=== PATIENT | male | born 1950 | race Caucasian/White ===

== ENCOUNTER 2016-12-10 10:26 | Emergency (ER) | payer MEDICARE, BC ==
[2016-12-10 10:37] VITALS: BP 171/101
[2016-12-10 11:07] LABS: Hematocrit 38.9 % (42.0-52.0); Hemoglobin 13.6 gm/dL (13.5-18.0); Mean Cell Volume 94.9 fl (78-100); Mean Corpuscular Hemoglobin 33.2 pg (27-31); Mean Platelet Volume 10.7 fl (6.0-9.5); Neutrophil # 2.9 K/mm3 (1.3-6.0); Neutrophil % 68.3 % (42-75.0); Platelet Count 168 K/mm3 (150-450); Red Cell Distribution Width 12.6 % (11.5-14.0); White Blood Count 4.3 K/mm3 (4.0-10.5)
[2016-12-10 11:11] LABS: Urine Bilirubin Negative (NEGATIVE); Urine Blood 250 /ul (NEGATIVE); Urine Ketone 15 mg/dL (NEGATIVE); Urine Nitrite Negative (NEGATIVE); Urine Protein >=300 mg/dL (NEGATIVE); Urine Urobilinogen Normal (NORMAL); Urine pH 6.5 pH (5.0-7.0)
[2016-12-10 11:15] LABS: Prothrombin Time (Patient) 9.4 Seconds (9.4-11.4)
[2016-12-10 11:16] LABS: INR 0.9 INR (0.90-1.10)
[2016-12-10 11:20] LABS: Urine Appearance Turbid; Urine Bacteria TRACE; Urine Color Red; Urine RBC >50 /hpf (0-5); Urine WBC None Seen /hpf (0-5)
[2016-12-10 11:33] LABS: BUN/Creatinine Ratio 18.6 (9.0-21.6); Bilirubin, Total 0.6 mg/dL (0.0-1.1); Ca. Corrected For Albumin 9.2 mg/dL (8.4-10.2); Calcium * 9.5 mg/dL (7.9-10.9); Carbon Dioxide 27.1 mmol/L (24-32.6); Potassium 4.1 mmol/L (3.4-4.6); Total Protein 7.6 gm/dL (6.2-8.2)
--- NOTE | 2016-12-10 11:38 | ERNOTE ---
ER Male HPI Stated Complaint: URINATING BLOOD ER Male: other - hematuria Time Seen by Provider: 12/10/16 10:40 Source: patient Immunizations: IMMUNIZATION HX Immunizations Up to Date Yes Allergies/Adverse Reactions: Allergies codeine Adverse Reaction (Severe, Verified 12/10/16 10:37) Vomiting Home Medications: HOME MEDICATIONS PARoxetine HCL [Paxil] 20 mg PO DAILY 11/14/14 [Last Taken Unknown] Terazosin HCl 2 mg PO DAILY 11/14/14 [Last Taken Unknown] Bupropion HCl [Wellbutrin Sr] 150 mg PO DAILY 12/10/16 [Last Taken Unknown] - History of Present Illness Narrative: Patient was recently seen in his doctor's office and was started on Keflex for what was believed to be a UTI with hematuria. Patient states that the bleeding has gotten worse and is now passing clots. Patient denies any pain of any kind. Timing: Present: constant - with every urination Quality: Present: moderate Radiation: Present: none Activities at Onset: Present: none Sexual [place] History: Present: single partner Associated Symptoms: Present: denies symptoms Prior Treatment: Present: recently seen, treated by physician, currently on antibiotics Review of Systems - Review of Systems Constitutional: Present: See HPI EYE: Present: no symptoms reported ENT: Present: no symptoms reported Respiratory: Present: no symptoms reported Cardiology: Present: no symptoms reported Gastrointestinal/Abdominal: Present: no symptoms reported Genitourinary: Present: See HPI, hematuria Musculoskeletal: Present: no symptoms reported Skin: Present: no symptoms reported Neurological: Present: no symptoms reported Endocrine: Present: no symptoms reported Hematologic/Lymphatic: Present: no symptoms reported Psych: Present: no symptoms reported - Patient's Past Medical History Patient History - Medical: Headache Patient History - Cancer: No Hx of Cancer Patient History - Surgical Procedures: Noncontributory - Social History Living Situations: home Alcohol Use: none Drug Use: none - Immunizations Immunizations Up to Date: Yes Physical Exam - Physical Exam General Appearance: Present: wd/wn, alert, no apparent distress Head Exam: Present: normal inspection Eye Exam: Normal inspection: bilateral, PERRL: bilateral Ears, Nose, Throat: Present: normal ENT inspection, H, normal pharynx Neck: Present: normal inspection, nontender Respiratory: Present: no respiratory distress, normal breath sounds, no accessory muscle use, chest nontender, lungs clear Cardiovascular/Chest: Present: regular rate, rhythm, no murmur, normal peripheral pulses Gastrointestinal/Abdominal: Present: normal bowel sounds, nontender, nondistended, soft, no organomegaly Rectal Exam: Present: deferred Back Exam: Present: normal inspection, normal range of motion Extremity Exam: Present: normal inspection, non-tender, no edema, normal range of motion Neurological Exam: Present: alert, oriented, normal mood/affect Skin Exam: Present: normal color, warm/dry Lymphatic Exam: Present: no adenopathy ED Progress - Results and Orders Patient's Lab Results:: I have reviewed the patient's lab results. - Vital Signs Patient's Vital Signs:: I have reviewed the patient's vital signs. Vital Signs: Vital Signs 12/10/16 10:33 Temperature 36.2 C L Pulse Rate 80 Respiratory 12 Rate Blood Pressure 171/101 O2 Sat by Pulse 98 Oximetry - Progress/Reassessment Chief Complaint: Genitourinary Problem Plan - Plan Plan: As the patient has painless hematuria, in the absence of any obvious urinary tract infection, we have to consider possible transitional cell carcinoma of the bladder. I discussed the case with Dr. Maciel's office patient will be seen on Wednesday for possible uroscopy. Departure Clinical Impression: Hematuria Qualifiers: Hematuria type: gross Qualified Code(s): R31.0 - Gross hematuria - Departure Disposition: Home self-care Condition: Good Instructions: Hematuria, Pediatric Additional Instructions: See Dr. Maciel Wednesday afternoon at 4 pm. Referrals: Kera Smith MD [Primary Care Provider] - Krzysztof Maciel MD [Associate] -
== END 2016-12-10 11:41 | disposition home or self-care (01) ==
LOC: ER 10:26
DX: R31.0 Gross hematuria (principal)

== ENCOUNTER 2017-02-11 15:05 | Inpatient (IN) | payer MEDICARE, BC ==
[2017-02-11] MEDS ORDERED: NORMAL SALINE 1,000 ML IV ONE (15:13)
[2017-02-11] MEDS ORDERED: ACETAMINOPHEN 325 MG TABLET PO ONE (15:26)
--- NOTE | 2017-02-11 15:29 | ERNOTE ---
Medical Problem HPI - Narrative Date of Service: 02/11/17 - General Chief Complaint: Nausea/Vomiting Time Seen by Provider: 02/11/17 15:05 Source: patient Exam Limitations: no limitations - Immun/Allergies/Home Medications Immunizations: IMMUNIZATION HX Immunizations Up to Date Yes History of Influenza Vaccine No Allergies/Adverse Reactions: Allergies codeine Adverse Reaction (Severe, Verified 02/11/17 15:13) Vomiting Home Medications: HOME MEDICATIONS PARoxetine HCL [Paxil] 20 mg PO DAILY 11/14/14 [Last Taken Unknown] Terazosin HCl 2 mg PO DAILY 11/14/14 [Last Taken Unknown] Bupropion HCl [Wellbutrin Sr] 150 mg PO DAILY 12/10/16 [Last Taken Unknown] Oxybutynin Chloride [Ditropan] 5 mg PO 02/11/17 [Last Taken Unknown] - History of Present History Narrative: Pt. comes in with c/o vomiting intermittently for 2-3 weeks and no urine output from nephrostomy tube for 2 days. Pt. denies fever, nausea, diarrhea, but does state that he has been chilled and states that he was a little confused earlier today but that has resolved. also states taht pt. does urinate via his urethra. Review of Systems - Review of Systems Constitutional: Present: recent illness - bladder CA, chills, weakness, fatigue , malaise. Absent: fever EYE: Present: no symptoms reported ENT: Present: no symptoms reported Respiratory: Present: no symptoms reported. Absent: shortness of breath, cough , wheezing Cardiology: Present: no symptoms reported. Absent: chest pain, palpitations, edema Gastrointestinal/Abdominal: Present: vomiting. Absent: nausea, diarrhea, abdominal pain Genitourinary: Present: no symptoms reported Musculoskeletal: Present: no symptoms reported. Absent: back pain, joint pain Skin: Present: no symptoms reported. Absent: rash, change in color Neurological: Present: other - confusion. Absent: headache, dizziness/light- headedness, numbness, tingling All Other Systems: All systems neg except as marked - Patient's Past Medical History Patient History - Medical: Headache Patient History - Cancer: Bladder Patient History - Surgical Procedures: Hernia Repair Patient History - Other: None - Social History Living Situations: home Smoking Status: Current every day smoker Have you smoked in the past 12 months: Yes - Immunizations Immunizations Up to Date: Yes History of Influenza Vaccine: No Physical Exam - Physical Exam General Appearance: Present: wd/wn, alert, no apparent distress Head Exam: Present: normal inspection, no evidence of injury Eye Exam: Normal inspection: bilateral, PERRL: bilateral, EOMI: bilateral Ears, Nose, Throat: Present: normal ENT inspection, normal pharynx Neck: Present: normal inspection, nontender, supple, full range of motion. Absent: lymphadenopathy (R), lymphadenopathy (L) Respiratory: Present: no respiratory distress, normal breath sounds, no accessory muscle use, chest nontender, lungs clear Cardiovascular/Chest: Present: no murmur, normal peripheral pulses, tachycardia Gastrointestinal/Abdominal: Present: normal bowel sounds, nontender, distended, hepatomegaly Back Exam: Present: normal inspection, normal range of motion, CVA tenderness (L ) Extremity Exam: Present: normal inspection Neurological Exam: Present: alert, oriented, normal mood/affect, no motor/ sensory deficits Skin Exam: Present: warm/dry, pallor ED Progress - Date and Time Seen: Date and Time: 02/11/17 22:09 Discussed with taina and she accepts admission with Angelica obtaining a neprostomy tube collection bag and getting a head CT on the way to the floor. - Results and Orders Patient's Lab Results:: I have reviewed the patient's lab results. Results and Orders: Abnormal Lab Results 02/11/17 02/11/17 02/11/17 Range/Units 15:10 15:30 15:30 RBC 3.70 L (4.7-6.0) M/mm3 Hgb 12.5 L (13.5-18.0) gm/dL Hct 36.2 L (42.0-52.0) % MCH 33.8 H (27-31) pg Plt Count 149 L (150-450) K/mm3 MPV 10.5 H (6.0-9.5) fl Immature Gran % (Auto) 0.50 H (0.001-0.429) % Neutrophils % 84.5 H (42-75.0) % Lymphocytes % 6.1 L (20-51) % Lymphocytes # 0.4 L (1.5-3.5) k/mm3 ESR (0-10) mm/hr Anion Gap 14.8 H (6.8-13.8) mmol/L Est GFR (Non-Af Amer) 58 L (60-130) mL/min Random Glucose 120 H (70-110) mg/dL Lactic Acid, Venous (0.4-1.9) mmol/L AST 62 H (0-48) U/L ALT 82 H (19-67) U/L C-Reactive Prot, Quant 12.2 H (0.0-0.9) mg/dL Urine Protein >=300 H (NEGATIVE) mg/dL Urine Blood 250 H (NEGATIVE) /ul Prot Sulfosalicylic Acd 4+ H (0) mg/dL Ur Leukocyte Esterase 500 H (NEGATIVE) /ul Urine RBC 25-50 H (0-5) /hpf Urine WBC >50 H (0-5) /hpf Urine Bacteria 4+ H (NONE) Ethyl Alcohol 26.0 H (0.0-10.0) mg/dL 02/11/17 02/11/17 Range/Units 15:30 15:30 RBC (4.7-6.0) M/mm3 Hgb (13.5-18.0) gm/dL Hct (42.0-52.0) % MCH (27-31) pg Plt Count (150-450) K/mm3 MPV (6.0-9.5) fl Immature Gran % (Auto) (0.001-0.429) % Neutrophils % (42-75.0) % Lymphocytes % (20-51) % Lymphocytes # (1.5-3.5) k/mm3 ESR 29 H (0-10) mm/hr Anion Gap (6.8-13.8) mmol/L Est GFR (Non-Af Amer) (60-130) mL/min Random Glucose (70-110) mg/dL Lactic Acid, Venous 3.3 H* (0.4-1.9) mmol/L AST (0-48) U/L ALT (19-67) U/L C-Reactive Prot, Quant (0.0-0.9) mg/dL Urine Protein (NEGATIVE) mg/dL Urine Blood (NEGATIVE) /ul Prot Sulfosalicylic Acd (0) mg/dL Ur Leukocyte Esterase (NEGATIVE) /ul Urine RBC (0-5) /hpf Urine WBC (0-5) /hpf Urine Bacteria (NONE) Ethyl Alcohol (0.0-10.0) mg/dL - Vital Signs Patient's Vital Signs:: I have reviewed the patient's vital signs. Vital Signs: Vital Signs 02/11/17 15:06 Temperature 38.0 C H Pulse Rate 113 H Respiratory 15 Rate Blood Pressure 161/95 O2 Sat by Pulse 97 Oximetry - X-Ray X-Ray #1 X-Ray: chest Interpretation: Reviewed by me X-ray Comments: no acute process X-Ray #2 X-Ray: abdomen Interpretation: Reviewed by me X-ray Comments: abnormal gas pattern - CT/Ultrasound CT/Ultrasound Narrative: CT abdomen with notable bladder mass and soft tissue abnormality on abdominal wall but no obstruction. - Progress/Reassessment Chief Complaint: Nausea/Vomiting Progress:: Unchanged Departure Clinical Impression: UTI (urinary tract infection) Qualifiers: Urinary tract infection type: acute pyelonephritis Qualified Code(s): N10 - Acute pyelonephritis Sepsis Qualifiers: Sepsis type: sepsis due to unspecified organism Qualified Code(s): A41.9 - Sepsis, unspecified organism Bladder cancer Qualifiers: Bladder location: unspecified site Qualified Code(s): C67.9 - Malignant neoplasm of bladder, unspecified - Departure Disposition: [facility] Condition: Serious
[2017-02-11] MEDS ORDERED: ACETAMINOPHEN 325 MG TABLET ONE (15:34)
[2017-02-11 15:58] LABS: Hematocrit 36.2 % (42.0-52.0); Hemoglobin 12.5 gm/dL (13.5-18.0); Mean Cell Volume 97.8 fl (78-100); Mean Corpuscular Hemoglobin 33.8 pg (27-31); Mean Corpuscular Hgb Conc 34.5 g/dl (32-36); Mean Platelet Volume 10.5 fl (6.0-9.5); Neutrophil # 4.8 K/mm3 (1.3-6.0); Neutrophil % 84.5 % (42-75.0); Platelet Count 149 K/mm3 (150-450); Red Cell Distribution Width 13.2 % (11.5-14.0); White Blood Count 5.7 K/mm3 (4.0-10.5)
[2017-02-11] MEDS ORDERED: ONDANSETRON HCL/PF 2 MG/ML VIAL IV ONE (16:08)
[2017-02-11 16:09] LABS: Albumin * 3.6 gm/dl (3.4-5.0); Anion Gap 14.8 mmol/L (6.8-13.8); BUN/Creatinine Ratio 14.5 (9.0-21.6); Calcium * 9.2 mg/dL (7.9-10.9); Carbon Dioxide 27.2 mmol/L (24-32.6); Total Protein 7.5 gm/dL (6.2-8.2)
[2017-02-11 16:10] LABS: Bilirubin, Total 0.7 mg/dL (0.0-1.1); CRP 12.2 mg/dL (0.0-0.9); Ca. Corrected For Albumin 9.2 mg/dL (8.4-10.2)
[2017-02-11] MEDS ORDERED: ONDANSETRON HCL/PF 2 MG/ML VIAL ONE (16:14)
[2017-02-11] MEDS: NORMAL SALINE 1,000 ML IV PRN ×2 (17:03→18:43)
[2017-02-11 17:22] LABS: Urine Bilirubin Negative (NEGATIVE); Urine Blood 250 /ul (NEGATIVE); Urine Ketone Negative (NEGATIVE); Urine Nitrite Negative (NEGATIVE); Urine Protein >=300 mg/dL (NEGATIVE); Urine Urobilinogen Normal (NORMAL); Urine pH 7.5 pH (5.0-7.0)
[2017-02-11] MEDS ORDERED: DIATRIZOATE MEGLUMINE, SODIUM 30 ML BTL ONE (17:31)
[2017-02-11] MEDS ORDERED: DIATRIZOATE MEGLUMINE, SODIUM 30 ML BTL PO ONE (17:34)
[2017-02-11 17:47] LABS: Urine Appearance Cloudy; Urine Color Yellow; Urine RBC 25-50 /hpf (0-5); Urine WBC >50 /hpf (0-5)
[2017-02-11 17:48] LABS: Urine Bacteria 4+
[2017-02-11] MEDS ORDERED: hydrOXYzine PAMOATE 25 MG CAPSULE PO ONE (20:44)
[2017-02-11] MEDS ORDERED: hydrOXYzine PAMOATE 25 MG CAPSULE ONE (20:44)
--- NOTE | 2017-02-11 22:34 | HP ---
Chief Complaint - Chief Complaint Date of Service: 02/11/17 Time of Service: 22:28 Chief Complaint: "Confusion, fevers". Source of HPI- Pt; unreliable due to AMS , ERP report. History of Present Illness: Mr. Camarena is a 66-yr-old [facility] pt who sees Dr. Taylor Smith in [place]. His PMH is significant for: Bladder Ca, Hernia & HTN.History is unobtainable from the pt due to AMS and attempts to reach family/spouse were unsuccessful. Apparently pt was brought to the ED tonight with complaints vomiting intermittently for 2- 3 weeks and lack of urinary output from the LT Nephrostomy tube for about 2 days. Spouse reported to the ERP that pt has also been acting confused. At the ED, V.S - 38.0,113,15,161/95, 97% RA. Lab studies showed WBC--> 5.7 with a LT shift, Lactic acid --> 3.3, CRP-->12.2, ESR-->29, AST-->62 ALT-->82. UA from LT Nephrostomy showed presence of infection. Toxicology screening was positive for ETOH & Marijuana. An abdominal CT showed: Moderate LT hydrouterenephrosis. Of- note pt presented to the [facility] ER on 12/10/16 with painless Hematuria and passing of blood clots. Referral was made to Urology for suspicion of Bladder cancer-(Still awaiting medical records from [facility] where he followed-up with Dr. Maciel's for Ureteroscopy). Pt will need to be admitted inpatient for a minimum of 2 midnights due to Sepsis secondary to UTI. - Patient's Past Medical History Patient History - Medical: Headache, Other - Hernia Patient History - Cardiac/Respiratory: Hypertension Patient History - Cancer: Bladder Patient History - Surgical Procedures: Hernia Repair Patient History - Other: None - Family History Father Family History - Medical: , No pertinent hx Mother Family History - Medical: , No pertinent hx - Social History Living Situations: home Smoking Status: Current every day smoker Have you smoked in the past 12 months: Yes - Immunizations Immunizations Up to Date: Yes History of Influenza Vaccine: No Review Of Systems (GEN) - Review of Systems Additional Comments: ROS unobtainable due to AMS. Allergies/Adverse Reactions: Allergies Allergy/AdvReac Type Severity Reaction Status Date / Time codeine AdvReac Severe Vomiting Verified 02/11/17 15:13 Home Medications: HOME MEDICATIONS PARoxetine HCL [Paxil] 20 mg PO DAILY 11/14/14 [Last Taken Unknown] Terazosin HCl 2 mg PO DAILY 11/14/14 [Last Taken Unknown] Bupropion HCl [Wellbutrin Sr] 150 mg PO DAILY 12/10/16 [Last Taken Unknown] Oxybutynin Chloride [Ditropan] 5 mg PO 02/11/17 [Last Taken Unknown] Exam - Exam Vital Signs: Vital Signs - Last Taken Temp 37.7 C H 02/11/17 21:37 Pulse 117 H 02/11/17 21:37 Resp 22 H 02/11/17 21:37 BP 160/95 02/11/17 21:37 Pulse Ox 95 02/11/17 21:37 Constitutional: Present: Alert, Mild distress, Thin and frail ENT Exam: Present: dry mucous membranes Eye Exam: bilateral eye: normal inspection, PERRL Neck: Present: non-tender, full range of motion, supple Back Exam: Present: other - Surgival site with LT nephrstomy tube Breasts: Present: Exam deferred Respiratory: Present: lungs clear, No rales, No wheezing Cardiovascular/Chest: Present: normal peripheral pulses, tachycardia Abdomen: Present: Normal bowel sounds, soft, nontender /Rectal: Present: Exam deferred Extremity: Present: normal range of motion, non-tender, normal inspection Skin Exam: Present: warm/dry, no cyanosis Lymphatic: Present: no adenopathy Neurologic: Present: no motor/sensory deficits, alert, disoriented x 3 Appearance: Present: impaired insight Eye contact: Present: decreased rate of speech, compulsive Thoughts: Present: incoherent Diagnostic Studies: Laboratory Results WBC 5.7 K/mm3 (4.0-10.5) 02/11/17 15:30 RBC 3.70 M/mm3 (4.7-6.0) L 02/11/17 15:30 Hgb 12.5 gm/dL (13.5-18.0) L 02/11/17 15:30 Hct 36.2 % (42.0-52.0) L 02/11/17 15:30 MCV 97.8 fl (78-100) 02/11/17 15:30 MCH 33.8 pg (27-31) H 02/11/17 15:30 MCHC 34.5 g/dl (32-36) 02/11/17 15:30 RDW 13.2 % (11.5-14.0) 02/11/17 15:30 Plt Count 149 K/mm3 (150-450) L 02/11/17 15:30 MPV 10.5 fl (6.0-9.5) H 02/11/17 15:30 Immature Gran % (Auto) 0.50 % (0.001-0.429) H 02/11/17 15:30 Immature Gran # (Auto) 0.03 K/mm3 (0.000-0.0310) 02/11/17 15:30 Neutrophils % 84.5 % (42-75.0) H 02/11/17 15:30 Lymphocytes % 6.1 % (20-51) L 02/11/17 15:30 Monocytes % 7.9 % (0.0-9) 02/11/17 15:30 Eosinophils % 0.5 % (0.0-3.0) 02/11/17 15:30 Basophils % 0.5 % (0.0-1.0) 02/11/17 15:30 Nucleated RBC % 0.0 k/mm3 (0-1) 02/11/17 15:30 Neutrophils # 4.8 K/mm3 (1.3-6.0) 02/11/17 15:30 Lymphocytes # 0.4 k/mm3 (1.5-3.5) L 02/11/17 15:30 Monocytes # 0.5 k/mm3 (0.0-1.0) 02/11/17 15:30 Eosinophils # 0.0 k/mm3 (0.0-0.7) 02/11/17 15:30 Absolute Basophils 0.0 k/mm3 (0.0-0.1) 02/11/17 15:30 ESR 29 mm/hr (0-10) H 02/11/17 15:30 Sodium 135 mmol/L (132-142) 02/11/17 15:30 Plasma Sodium 135 mmol/L (130-142) 02/11/17 15:30 Potassium 4.0 mmol/L (3.4-4.6) 02/11/17 15:30 Chloride 97 mmol/L (97-106) 02/11/17 15:30 Carbon Dioxide 27.2 mmol/L (24-32.6) 02/11/17 15:30 Anion Gap 14.8 mmol/L (6.8-13.8) H 02/11/17 15:30 BUN 19 mg/dL (6-23) 02/11/17 15:30 Creatinine 1.31 mg/dL (0.4-1.4) 02/11/17 15:30 Est GFR (Non-Af Amer) 58 mL/min (60-130) L 02/11/17 15:30 BUN/Creatinine Ratio 14.5 (9.0-21.6) 02/11/17 15:30 Random Glucose 120 mg/dL (70-110) H 02/11/17 15:30 Lactic Acid, Venous 1.9 mmol/L (0.4-1.9) 02/11/17 18:28 Calcium 9.2 mg/dL (7.9-10.9) 02/11/17 15:30 Calcium Adj for Albumin 9.2 mg/dL (8.4-10.2) 02/11/17 15:30 Total Bilirubin 0.7 mg/dL (0.0-1.1) 02/11/17 15:30 AST 62 U/L (0-48) H 02/11/17 15:30 ALT 82 U/L (19-67) H 02/11/17 15:30 Alkaline Phosphatase 125 U/L (50-170) 02/11/17 15:30 Ammonia Less than 17.0 mcmol/L (11-35) 02/11/17 19:30 C-Reactive Prot, Quant 12.2 mg/dL (0.0-0.9) H 02/11/17 15:30 Total Protein 7.5 gm/dL (6.2-8.2) 02/11/17 15:30 Albumin 3.6 gm/dl (3.4-5.0) 02/11/17 15:30 Urine Color Yellow 02/11/17 15:10 Urine Appearance Cloudy 02/11/17 15:10 Urine pH 7.5 pH (5.0-7.0) 02/11/17 15:10 Ur Specific [place] 1.020 SP.GR. (1.005-1.030) 02/11/17 15:10 Urine Protein >=300 mg/dL (NEGATIVE) H 02/11/17 15:10 Urine Glucose (UA) Negative mg/dL (NEGATIVE) 02/11/17 15:10 Urine Ketones Negative mg/dL (NEGATIVE) 02/11/17 15:10 Urine Blood 250 /ul (NEGATIVE) H 02/11/17 15:10 Urine Nitrate Negative (NEGATIVE) 02/11/17 15:10 Urine Bilirubin Negative mg/dl (NEGATIVE) 02/11/17 15:10 Prot Sulfosalicylic Acd 4+ mg/dL (0) H 02/11/17 15:10 Urine Urobilinogen Normal EU/dl (NORMAL) 02/11/17 15:10 Ur Leukocyte Esterase 500 /ul (NEGATIVE) H 02/11/17 15:10 Urine RBC 25-50 /hpf (0-5) H 02/11/17 15:10 Urine WBC >50 /hpf (0-5) H 02/11/17 15:10 Ur Epithelial Cells Trace /hpf (0-5) 02/11/17 15:10 Urine Bacteria 4+ (NONE) H 02/11/17 15:10 Urine Culture Comments Culture to follow 02/11/17 15:10 Ethyl Alcohol 26.0 mg/dL (0.0-10.0) H 02/11/17 15:30 Assessment/Plan - Assessment/Plan (1) Sepsis Assessment: Pt noted to have fever of 38.0, HR 113,& Lactic acid of 3.3 with suspected source of infection being UTI. Treated according to Sepsis Protocol- Aggressive IVF hydration, IV antibiotics, trend lactic acid, Monitor V.S. CBC in am. Problem: Acute Qualifiers: Sepsis type: sepsis due to unspecified organism Qualified Code(s): A41.9 - Sepsis, unspecified organism (2) UTI (urinary tract infection) Assessment: UA sterile sample collected from LT Nephrostumy tube. Started on Rocephin 1 gm at the ED and will switch to appropriate antibiotics when urine culture results. Laboratory Tests 02/11/17 15:10 Ur Leukocyte Esterase 500 H Urine RBC 25-50 H Urine WBC >50 H Urine Bacteria 4+ H Problem: Acute Qualifiers: Urinary tract infection type: acute pyelonephritis Qualified Code(s): N10 - Acute pyelonephritis (3) Hydronephrosis of left kidney Assessment: CT of the Abdomen showed: LT moderate hydronephrosis, No RT hydronephrosis. Pt reported lack of urine output on the LT nephrostomy x 2 days. Will consult Urology in am. The Nephrostomy bag was replaced by the ERP due to the filth with mold contained in it and an improvised bag was used as we do NOT carry one with similar connecting device/adaptor. There is minimal urine drainage. Problem: Acute (4) Acute encephalopathy Assessment: AMS is likely due to Infection, toxicity from ETOH, or recreational drug use. No infection on CXR and no inflammatory changes on the CT of the Abdomen. Expect an improvement as problems resolve. Unable to do Head CT for at least 24 hours due to prior contrast use with the Abdominal CT. Problem: Acute (5) Bladder cancer Assessment: On 12/14- According to [facility], he underwent transuretheral resection of the LT bladder neck- (had a mass > 5cm,) and Transurethral resection of the prostate along with biopsies. LT kidney was obstructed and he required a nephrostomy tube - done on 12/18. Plan unclear as there are no records of pt following up with Urology following final pathology results. Will consult in am. Cytology results showed: Urinary bladder washing- benign urothelial cells, mixed inflammation. Negative for malignancy. RT Flank Biospy- Features suggestive of Hemangioma, No evidence of metastatic carcinoma Prostate Transuretheral resection of prostate- Benign prostatic tissues, high grade urothelial carcinoma. Urinary bladder excision- High grade urothelial carcinoma Problem: Acute Qualifiers: Bladder location: unspecified site Qualified Code(s): C67.9 - Malignant neoplasm of bladder, unspecified (6) Alcohol intoxication Assessment: Monitor for withdrawals, prn medications. Laboratory Tests 02/11/17 15:30 Ethyl Alcohol 26.0 H Problem: Acute (7) Soft tissue mass Problem: Acute (8) Hypertension Problem: Chronic Qualifiers: Hypertension type: essential hypertension Qualified Code(s): I10 - Essential (primary) hypertension
[2017-02-12] MEDS: NORMAL SALINE 1,000 ML IV PRN ×3 (00:33→17:15)
[2017-02-12 05:54] LABS: Hematocrit 32.7 % (42.0-52.0); Mean Cell Volume 98.8 fl (78-100); Mean Corpuscular Hemoglobin 33.2 pg (27-31); Mean Corpuscular Hgb Conc 33.6 g/dl (32-36); Mean Platelet Volume 10.4 fl (6.0-9.5); Platelet Count 113 K/mm3 (150-450); Red Blood Count 3.31 M/mm3 (4.7-6.0); White Blood Count 6.1 K/mm3 (4.0-10.5)
[2017-02-12 06:00] LABS: Total Cells Counted 100
--- NOTE | 2017-02-12 06:08 | PN ---
Subjective - Date and Time Seen Date: 02/12/17 Time: 05:59 Subjective Narrative: Pt seen this am. Noted to have tremors. LT nephrostomy emptied only 25ml. Has been afebrile since 22.00. No other issues according to nursing. Objective - Vitals Vitals: Last Vital Signs Temp 36.3 C L 02/12/17 03:00 Pulse 111 H 02/12/17 04:28 Resp 18 02/12/17 03:00 BP 156/84 02/12/17 03:00 Pulse Ox 94 02/12/17 03:00 - Exam Constitutional: Present: Alert, Oriented x3, Thin and frail ENT Exam: Present: normal ENT inspection, dry mucous membranes Neck: Present: non-tender Respiratory: Present: lungs clear, No rales, No wheezing Cardiovascular/Chest: Present: normal peripheral pulses, regular rate, rhythm, no chest tenderness, no edema Abdomen: Present: Normal bowel sounds, soft, nontender /Rectal: Present: Exam deferred, Other - LT Nephrostomy tube. Extremity: Present: normal range of motion, non-tender, normal inspection Skin Exam: Present: warm/dry, no cyanosis Lymphatic: Present: no adenopathy Neurologic: Present: alert, disoriented x 3 Appearance: Present: impaired insight Eye contact: Present: cooperative, good eye contact, compulsive Thoughts: Present: no apparent hallucination Assessment/Plan - Problems/Diagnosis (1) Sepsis Problem: Acute Qualifiers: Sepsis type: sepsis due to unspecified organism Qualified Code(s): A41.9 - Sepsis, unspecified organism Narrative: Pt noted to have fever of 38.0, HR 113,& Lactic acid of 3.3 with suspected source of infection being UTI. Treated according to Sepsis Protocol- Aggressive IVF hydration, IV antibiotics, trend lactic acid, Monitor V.S. CBC in am (2) UTI (urinary tract infection) Problem: Acute Qualifiers: Urinary tract infection type: acute pyelonephritis Qualified Code(s): N10 - Acute pyelonephritis Narrative: UA sterile sample collected from LT Nephrostumy tube. Started on Rocephin 1 gm at the ED and will switch to appropriate antibiotics when urine culture results. (3) Hydronephrosis of left kidney Problem: Acute Narrative: CT of the Abdomen showed: LT moderate hydronephrosis, No RT hydronephrosis. Pt reported lack of urine output on the LT nephrostomy x 2 days. Will consult Urology in am. 02/11-The Nephrostomy bag was replaced by the ERP due to the filth with mold contained in it and an improvised bag was used as we do NOT carry one with similar connecting device/adaptor. There is minimal urine drainage. 02/12- Seen by Urology- Left nephrostomy was flushed with 20 cc of saline and pulled back enabling it's patency. It's to be flushed with 20 cc every shift. He will have a follow-up outpatient with Urology for the Nephrostomy tube to be changed. Based on the CT scan, the LT nephrostomy tube appears to be in good position. If sepsis worsens or Nephrostomy plugs, will need transfer to [facility]. (4) Acute encephalopathy Problem: Acute Narrative: AMS is likely due to Infection, toxicity from ETOH, or recreational drug use. No infection on CXR and no inflammatory changes on the CT of the Abdomen. Expect an improvement as problems resolve. Unable to do Head CT for at least 24 hours due to prior contrast use with the Abdominal CT. (5) Bladder cancer Problem: Acute Qualifiers: Bladder location: unspecified site Qualified Code(s): C67.9 - Malignant neoplasm of bladder, unspecified Narrative: On 12/14- According to [facility], he underwent transuretheral resection of the LT bladder neck- (had a mass > 5cm,) and Transurethral resection of the prostate along with biopsies. LT kidney was obstructed and he required a nephrostomy tube - done on 12/18. Plan unclear as there are no records of pt following up with Urology following final pathology results. Will consult in am. 02/12- According to Dr. Waterman, pt had arrangements set up at the [facility] following the pathology findings of the bladder. He met with Dr. Dueñas at the [facility] to discuss his case but appears that the pt declined all further treatments. There was questionable metastatic lesion adjacent to the R kidney on CT scan but no further follow up. (6) Alcohol intoxication Problem: Acute Narrative: Monitor for withdrawals, prn medications. (7) Soft tissue mass Problem: Acute (8) Hypertension Problem: Chronic Qualifiers: Hypertension type: essential hypertension Qualified Code(s): I10 - Essential (primary) hypertension
[2017-02-12 06:15] LABS: Atypical (Reactive) Lymph 1 % (0-2); Band 13 % (0-2.0); Lymphocyte 6 % (20-51); Monocyte 6 % (0-9); Neutrophil 74 % (42-75); Neutrophil # 4.5 K/mm3 (1.3-6.0)
[2017-02-12 06:16] LABS: Platelet Estimate Decreased (NORMAL)
[2017-02-12 07:05] LABS: Anion Gap 10.9 mmol/L (6.8-13.8); BUN/Creatinine Ratio 11.4 (9.0-21.6); Calcium * 8.3 mg/dL (7.9-10.9); Carbon Dioxide 26.5 mmol/L (24-32.6); Estimated Creat Clear 68.8; Potassium 3.4 mmol/L (3.4-4.6)
[2017-02-12 07:34] LABS: Urine Bilirubin Negative (NEGATIVE); Urine Blood 250 /ul (NEGATIVE); Urine Ketone Negative (NEGATIVE); Urine Nitrite Negative (NEGATIVE); Urine Protein 100 mg/dL (NEGATIVE); Urine Specific Gravity 1.015 SP.GR. (1.005-1.030); Urine Urobilinogen Normal (NORMAL); Urine pH 7.5 pH (5.0-7.0)
[2017-02-12 07:43] LABS: Urine Appearance Turbid; Urine Color Yellow
[2017-02-12 07:44] LABS: Urine Bacteria 3+; Urine Renal Epithelial Cell Few - 1+ /hpf; Urine WBC >50 /hpf (0-5)
[2017-02-12] MEDS: PARoxetine HCL 20 MG TABLET PO SCH (08:14)
[2017-02-12] MEDS: OXYBUTYNIN CHLORIDE 5 MG TABLET PO SCH (08:14)
[2017-02-12] MEDS: buPROPion HCL 150 MG TABLET.SA PO SCH (08:14)
[2017-02-12] MEDS ORDERED: LORazepam 1 MG TABLET PO PRN ×2 (09:36)
--- NOTE | 2017-02-12 10:12 | CONS ---
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 He was diagnosed in 12/[address] Maciel with [facility]. Found to have hydronephrosis at the time and had nephrostomy placed because cancer covering L UO. His nephrostomy has stopped draining the last 2 days and he has had a low grade fever. Case complicated by heavy EtOH abuse. He met with Dr. Dueñas at the [facility] to discuss his case and he declined all further treatments. There was questionable metastatic lesion adjacent to the R kidney on CT scan but no further follow up. Nursing reports the bag of his nephrostomy was covered with mold. They did change it. Preliminary urine culture from nephrostomy is positive. He has a low grade fever. His states he is very weak. Source: patient - History of Present Illness Allergies/Adverse Reactions: Allergies codeine Adverse Reaction (Severe, Verified 02/11/17 15:13) Vomiting Home Medications: Home Medications Medication Instructions Recorded Last Taken PARoxetine HCL [Paxil] 20 mg PO DAILY 11/14/14 Unknown Terazosin HCl 2 mg PO DAILY 11/14/14 Unknown Bupropion HCl [Wellbutrin Sr] 150 mg PO DAILY 12/10/16 Unknown Oxybutynin Chloride [Ditropan] 5 mg PO 02/11/17 Unknown - Patient's Past Medical History Patient History - Medical: Headache, Other - Hernia Patient History - Cardiac/Respiratory: Hypertension Patient History - Cancer: Bladder Patient History - Surgical Procedures: Hernia Repair Patient History - Other: None - Family History Father Family History - Medical: , No pertinent hx Mother Family History - Medical: , No pertinent hx - Social History Living Situations: home Smoking Status: Current every day smoker Have you smoked in the past 12 months: Yes Do you dip or chew tobacco: No Smoking Start Date: 03/01/60 Patient requests Smoking Cessation Consult: No Initiate information on Smoking Cessation: Yes - Immunizations Immunizations Up to Date: Yes History of Influenza Vaccine: No Procedures APPLICATION OF SPLINT (12/07/10) BURSECTOMY (12/11/10) DPT ADMINISTRATION (12/07/10) ENDO RECTUM POLYPECTOMY (01/13/11) OPEN RED-INT FIX HUMERUS (12/11/10) OTH & OPEN REPAIR DIRECT INGUINAL HERNIA W GRAFT OR PROSTH (10/21/06) Medications - Medications Current Medications: Current Medications Bupropion HCl (Wellbutrin Sr, Zyban) 150 mg PO DAILY [facility] Stop: 03/14/17 09:01 Last Admin: 02/12/17 08:14 Dose: 150 mg Sodium Chloride (Sodium Chloride 0.9%) 1,000 mls @ 999 mls/hr IV .Q1H1M PRN PRN Reason: HYDRATION Last Infusion: 02/11/17 20:46 Dose: Infused Ceftriaxone Sodium 1,000 mg/ (Dextrose/Water) 100 mls @ 200 mls/hr IV Q12H IRENE PRN Reason: Protocol Stop: 03/14/17 09:01 Last Admin: 02/12/17 08:46 Dose: 200 mls/hr Sodium Chloride (Sodium Chloride 0.9%) 1,000 mls @ 125 mls/hr IV .Q8H PRN PRN Reason: HYDRATION Stop: 03/13/17 23:48 Last Admin: 02/12/17 08:18 Dose: 125 mls/hr Oxybutynin Chloride (Ditropan) 5 mg PO DAILY IRENE Stop: 03/14/17 09:01 Last Admin: 02/12/17 08:14 Dose: 5 mg Paroxetine HCl (Paxil) 20 mg PO DAILY IRENE Stop: 03/14/17 09:01 Last Admin: 02/12/17 08:14 Dose: 20 mg Review of Systems - Review of Systems Generalized/Overall Review: Present: Weakness, Fever EENTM: Present: No Symptoms Reported Respiratory: Present: No Symptoms Reported Cardiac: Present: No Symptoms Reported Abdominal: Present: Nausea Musculoskeletal: Present: Other - weakness Neurological: Present: Weakness Skin: Present: No Symptoms Reported Endocrine: Present: No Symptoms Reported Physical Examination - Exam Narrative: Left nephrostomy with minimal urine drainage into the bag. I disconnected and flushed with 20 cc of saline and pulled back. There was some drainage noted after this. Vital Signs: Vital Signs - Last Taken Temp 98.1 F 02/12/17 07:11 Pulse 87 12/15/17 08:16 Resp 18 02/12/17 07:11 BP 153/78 02/12/17 07:11 Pulse Ox 95 02/12/17 07:11 O2 Oxygen Delivery Method Room Air Constitutional: Present: Cooperative, No distress, Looks Older than stated age ENT Exam: Present: hearing grossly normal Respiratory: Present: no respiratory distress Cardiovascular/Chest: Present: normal peripheral pulses Abdomen: Present: soft, nontender, nondistended Extremity: Present: normal range of motion Skin Exam: Present: normal color Neurologic: Present: no motor/sensory deficits, alert Appearance: Present: disheveled - Results and Findings: Narrative: patient has a blocked nephrostomy with signs of infection. Culture from nephrostomy pending. Based on the CT scan appears to be in good position. Will try to flush every shift with 20 cc of saline. If sepsis worsens or nephrostomy plugs will need transfer to [facility]. He has refused further treatment for cancer and will need hospice. Continues to drink to oblivion. Will need to arrange nephrostomy exchange as outpatient in the next few weeks. Lab/Microbiology results last 24 hrs: Abnormal/Pending Laboratory Last 24 HRS 02/12/17 02/12/17 02/12/17 07:10 05:49 05:49 RBC 3.31 L Hgb 11.0 L Hct 32.7 L MCH 33.2 H Plt Count 113 L MPV 10.4 H Band Neuts % (Manual) 13 H Lymphocytes % (Manual) 6 L Lymphocytes # (Manual) 0.4 L Platelet Estimate Decreased L Random Glucose 111 H Urine Protein 100 H Urine Blood 250 H Prot Sulfosalicylic Acd 4+ H Ur Leukocyte Esterase 100 H Urine RBC 5-10 H Urine WBC >50 H Ur Renal Epithelial Cell Few - 1+ H Urine Bacteria 3+ H - Assessments/Findings (1) UTI (urinary tract infection) Problem: Acute Qualifiers: Urinary tract infection type: acute pyelonephritis Qualified Code(s): N10 - Acute pyelonephritis (2) Sepsis Problem: Acute Qualifiers: Sepsis type: sepsis due to unspecified organism Qualified Code(s): A41.9 - Sepsis, unspecified organism
[2017-02-12] MEDS ORDERED: ONDANSETRON HCL/PF 2 MG/ML VIAL IV PRN (10:16)
[2017-02-12] MEDS: LORazepam 2 MG/ML DISP.SYRIN IV PRN ×3 (10:38→19:58)
[2017-02-12] MEDS: LORazepam 1 MG TABLET PO SCH ×2 (18:50→22:09)
[2017-02-12] MEDS: TERAZOSIN HCL 1 MG CAPSULE PO SCH (22:09)
[2017-02-13] MEDS: NORMAL SALINE 1,000 ML IV PRN ×3 (01:37→22:52)
[2017-02-13] MEDS: LORazepam 1 MG TABLET PO SCH ×7 (02:25→22:50)
--- NOTE | 2017-02-13 06:22 | PN ---
Subjective - Date and Time Seen Date: 02/13/17 Time: 06:22 Subjective Narrative: Pt seen this am. Appears very drowsy. Has been getting Ativan for withdrawal symptoms from ETOH. The left Nephrostomy is draining well and remains patent with flushes according to nursing. Objective - Vitals Vitals: Last Vital Signs Temp 36.3 C L 02/13/17 02:31 Pulse 87 02/13/17 02:31 Resp 28 H 02/13/17 02:31 BP 157/79 02/13/17 02:31 Pulse Ox 95 02/13/17 02:31 - Abnormal Lab Findings Abnormal Lab Findings: Abnormal Lab Results 02/12/17 02/12/17 Range/Units 05:49 07:10 Random Glucose 111 H (70-110) mg/dL Urine Protein 100 H (NEGATIVE) mg/dL Urine Blood 250 H (NEGATIVE) /ul Prot Sulfosalicylic Acd 4+ H (0) mg/dL Ur Leukocyte Esterase 100 H (NEGATIVE) /ul Urine RBC 5-10 H (0-5) /hpf Urine WBC >50 H (0-5) /hpf Ur Renal Epithelial Cell Few - 1+ H (NONE) /hpf Urine Bacteria 3+ H (NONE) - Exam Constitutional: Present: Cooperative, Somnolent, Thin and frail ENT Exam: Present: normal ENT inspection Neck: Present: non-tender, full range of motion, supple Breasts: Present: Exam deferred Respiratory: Present: No rales, No wheezing Cardiovascular/Chest: Present: normal peripheral pulses, regular rate, rhythm, no chest tenderness Abdomen: Present: Normal bowel sounds, soft, nontender /Rectal: Present: Other - LT Nephrostomy tube Extremity: Present: normal range of motion, non-tender, normal inspection, other Skin Exam: Present: warm/dry, no cyanosis Lymphatic: Present: no adenopathy Neurologic: Present: disoriented x 3 Appearance: Present: impaired insight Eye contact: Present: decreased rate of speech Thoughts: Present: incoherent Assessment/Plan - Problems/Diagnosis (1) Sepsis Problem: Resolved Qualifiers: Sepsis type: sepsis due to unspecified organism Qualified Code(s): A41.9 - Sepsis, unspecified organism Narrative: Pt noted to have fever of 38.0, HR 113,& Lactic acid of 3.3 with suspected source of infection being UTI. Treated according to Sepsis Protocol- Aggressive IVF hydration, IV antibiotics, trend lactic acid, Monitor V.S. CBC in am 02/13- sepsis resolved, Continue with maintenance IVF due to UTI (2) UTI (urinary tract infection) Problem: Acute Qualifiers: Urinary tract infection type: acute pyelonephritis Qualified Code(s): N10 - Acute pyelonephritis Narrative: UA sterile sample collected from LT Nephrostumy tube. Started on Rocephin 1 gm at the ED and will switch to appropriate antibiotics when urine culture results. 02/13- Urine culture showed growth of Acinetobacter Baummani which is resistant to Rocephin. Ax switched to Levaquin. (3) Hydronephrosis of left kidney Problem: Acute Narrative: CT of the Abdomen showed: LT moderate hydronephrosis, No RT hydronephrosis. Pt reported lack of urine output on the LT nephrostomy x 2 days. Will consult Urology in am. 02/11-The Nephrostomy bag was replaced by the ERP due to the filth with mold contained in it and an improvised bag was used as we do NOT carry one with similar connecting device/adaptor. There is minimal urine drainage. 02/12- Seen by Urology- Left nephrostomy was flushed with 20 cc of saline and pulled back enabling it's patency. It's to be flushed with 20 cc every shift. He will have a follow-up outpatient with Urology for the Nephrostomy tube to be changed. Based on the CT scan, the LT nephrostomy tube appears to be in good position. If sepsis worsens or Nephrostomy plugs, will need transfer to [facility]. (4) Acute encephalopathy Problem: Acute Narrative: AMS is likely due to Infection, toxicity from ETOH, or recreational drug use. No infection on CXR and no inflammatory changes on the CT of the Abdomen. Expect an improvement as problems resolve. Unable to do Head CT for at least 24 hours due to prior contrast use with the Abdominal CT (5) Bladder cancer Problem: Acute Qualifiers: Bladder location: unspecified site Qualified Code(s): C67.9 - Malignant neoplasm of bladder, unspecified Narrative: On 12/14- According to [facility], he underwent transuretheral resection of the LT bladder neck- (had a mass > 5cm,) and Transurethral resection of the prostate along with biopsies. LT kidney was obstructed and he required a nephrostomy tube - done on 12/18. Plan unclear as there are no records of pt following up with Urology following final pathology results. Will consult in am. 02/12- According to Dr. Waterman, pt had arrangements set up at the [facility] following the pathology findings of the bladder. He met with Dr. Dueñas at the [facility] to discuss his case but appears that the pt declined all further treatments. There was questionable metastatic lesion adjacent to the R kidney on CT scan but no further follow up. (6) Alcohol intoxication Problem: Acute Narrative: Monitor for withdrawals, prn medications. 02/13- Schedules doses of ativan decreased to 1 mg q 4. (7) Hypertension Problem: Chronic Qualifiers: Hypertension type: essential hypertension Qualified Code(s): I10 - Essential (primary) hypertension Narrative: B/P elevateds. Consider adding clonidine PRN to help with cardiovascular signs of withdrawals
[2017-02-13] MEDS: PARoxetine HCL 20 MG TABLET PO SCH (09:35)
[2017-02-13] MEDS: OXYBUTYNIN CHLORIDE 5 MG TABLET PO SCH (09:35)
[2017-02-13] MEDS: buPROPion HCL 150 MG TABLET.SA PO SCH (09:35)
[2017-02-13] MEDS: THIAMINE HCL 100 MG TABLET PO SCH (09:45)
[2017-02-13] MEDS: FOLIC ACID 1 MG TABLET PO SCH (09:45)
[2017-02-13] MEDS: LEVOFLOXACIN 750 MG TABLET PO SCH (09:46)
[2017-02-13 10:07] LABS: Hematocrit 33.4 % (42.0-52.0); Hemoglobin 11.1 gm/dL (13.5-18.0); Mean Corpuscular Hemoglobin 33.2 pg (27-31); Mean Corpuscular Hgb Conc 33.2 g/dl (32-36); Mean Platelet Volume 10.1 fl (6.0-9.5); Platelet Count 125 K/mm3 (150-450); Red Blood Count 3.34 M/mm3 (4.7-6.0); Red Cell Distribution Width 12.8 % (11.5-14.0); White Blood Count 4.4 K/mm3 (4.0-10.5)
[2017-02-13 10:08] LABS: Total Cells Counted 100
[2017-02-13 10:20] LABS: Atypical (Reactive) Lymph 2 % (0-2); Band 11 % (0-2.0); Lymphocyte 11 % (20-51); Monocyte 4 % (0-9); Neutrophil 72 % (42-75); Neutrophil # 3.2 K/mm3 (1.3-6.0); Platelet Estimate Decreased (NORMAL); RBC Morphology Normal (NORMAL)
[2017-02-13 10:30] LABS: Albumin * 2.7 gm/dl (3.4-5.0); Anion Gap 12.5 mmol/L (6.8-13.8); Bilirubin, Total 0.6 mg/dL (0.0-1.1); Calcium * 8.3 mg/dL (7.9-10.9); Carbon Dioxide 28.4 mmol/L (24-32.6); Potassium 3.9 mmol/L (3.4-4.6); Total Protein 6.2 gm/dL (6.2-8.2)
[2017-02-13] MEDS: TERAZOSIN HCL 1 MG CAPSULE PO SCH (20:30)
[2017-02-14] MEDS: LORazepam 1 MG TABLET PO SCH ×6 (03:45→23:51)
--- NOTE | 2017-02-14 06:03 | PN ---
Subjective - Date and Time Seen Date: 02/14/17 Time: 05:59 Subjective Narrative: Mr. Camarena seen this am. Is somnolent. Less tremulous with scheduled ativan. Lt nephrostomy draining normal with good urine output. AST/ALT mildly elevated on 02/13 compared to DOA. No other issues according to nursing. Objective - Vitals Vitals: Last Vital Signs Temp 36.3 C L 02/14/17 02:33 Pulse 71 02/14/17 02:33 Resp 20 02/14/17 02:33 BP 159/87 02/14/17 02:33 Pulse Ox 95 02/14/17 02:33 - Abnormal Lab Findings Abnormal Lab Findings: Abnormal Lab Results 02/13/17 02/13/17 Range/Units 09:58 09:58 RBC 3.34 L (4.7-6.0) M/mm3 Hgb 11.1 L (13.5-18.0) gm/dL Hct 33.4 L (42.0-52.0) % MCH 33.2 H (27-31) pg Plt Count 125 L (150-450) K/mm3 MPV 10.1 H (6.0-9.5) fl Band Neuts % (Manual) 11 H (0-2.0) % Lymphocytes % (Manual) 11 L (20-51) % Lymphocytes # (Manual) 0.5 L (1.5-3.5) k/mm3 Platelet Estimate Decreased L (NORMAL) AST 318 H (0-48) U/L ALT 273 H (19-67) U/L Albumin 2.7 L (3.4-5.0) gm/dl - Exam Constitutional: Present: Alert, No distress, Somnolent ENT Exam: Present: normal ENT inspection. Absent: nasal congestion, nasal drainage Neck: Present: non-tender, full range of motion Breasts: Present: Exam deferred Respiratory: Present: lungs clear, No rales, No wheezing Cardiovascular/Chest: Present: normal peripheral pulses, regular rate, rhythm, no murmur Abdomen: Present: Normal bowel sounds, soft, nontender /Rectal: Present: Exam deferred, Other - LT Nephrostomy tube. Extremity: Present: normal range of motion, non-tender, normal inspection Skin Exam: Present: warm/dry, no cyanosis Lymphatic: Present: no adenopathy Neurologic: Present: alert, disoriented x 3 Appearance: Present: appropriate insight Eye contact: Present: decreased rate of speech Thoughts: Present: no apparent hallucination Assessment/Plan - Problems/Diagnosis (1) Sepsis Problem: Resolved Qualifiers: Sepsis type: sepsis due to unspecified organism Qualified Code(s): A41.9 - Sepsis, unspecified organism Narrative: Pt noted to have fever of 38.0, HR 113,& Lactic acid of 3.3 with suspected source of infection being UTI. Treated according to Sepsis Protocol- Aggressive IVF hydration, IV antibiotics, trend lactic acid, Monitor V.S. CBC in am 02/13- sepsis resolved, Continue with maintenance IVF due to UTI. (2) UTI (urinary tract infection) Problem: Acute Qualifiers: Urinary tract infection type: acute pyelonephritis Qualified Code(s): N10 - Acute pyelonephritis Narrative: UA sterile sample collected from LT Nephrostumy tube. Started on Rocephin 1 gm at the ED and will switch to appropriate antibiotics when urine culture results. 02/13- Urine culture showed growth of Acinetobacter Baummani which is resistant to Rocephin. Ax switched to Levaquin. (3) Hydronephrosis of left kidney Problem: Acute Narrative: CT of the Abdomen showed: LT moderate hydronephrosis, No RT hydronephrosis. Pt reported lack of urine output on the LT nephrostomy x 2 days. Will consult Urology in am. 02/11-The Nephrostomy bag was replaced by the ERP due to the filth with mold contained in it and an improvised bag was used as we do NOT carry one with similar connecting device/adaptor. There is minimal urine drainage. 02/12- Seen by Urology- Left nephrostomy was flushed with 20 cc of saline and pulled back enabling it's patency. It's to be flushed with 20 cc every shift. He will have a follow-up outpatient with Urology for the Nephrostomy tube to be changed. Based on the CT scan, the LT nephrostomy tube appears to be in good position. If sepsis worsens or Nephrostomy plugs, will need transfer to [facility]. (4) Acute encephalopathy Problem: Acute Narrative: AMS is likely due to Infection, toxicity from ETOH, or recreational drug use. No infection on CXR and no inflammatory changes on the CT of the Abdomen. Expect an improvement as problems resolve. Unable to do Head CT for at least 24 hours due to prior contrast use with the Abdominal CT (5) Bladder cancer Problem: Acute Qualifiers: Bladder location: unspecified site Qualified Code(s): C67.9 - Malignant neoplasm of bladder, unspecified Narrative: On 12/14- According to [facility], he underwent transuretheral resection of the LT bladder neck- (had a mass > 5cm,) and Transurethral resection of the prostate along with biopsies. LT kidney was obstructed and he required a nephrostomy tube - done on 12/18. Plan unclear as there are no records of pt following up with Urology following final pathology results. Will consult in am. 02/12- According to Dr. Waterman, pt had arrangements set up at the [facility] following the pathology findings of the bladder. He met with Dr. Dueñas at the [facility] to discuss his case but appears that the pt declined all further treatments. There was questionable metastatic lesion adjacent to the R kidney on CT scan but no further follow up. (6) Alcohol intoxication Problem: Acute Narrative: Monitor for withdrawals, prn medications. 02/13- Schedules doses of ativan decreased to 1 mg q 4. (7) Abnormal liver enzymes Problem: Acute Narrative: Suspect Alcoholic liver disease. Laboratory Tests 02/11/17 02/13/17 15:30 09:58 Total Bilirubin 0.7 0.6 AST 62 H 318 H ALT 82 H 273 H Alkaline Phosphatase 125 111 Laboratory Tests 02/11/17 02/13/17 15:30 09:58 Albumin 3.6 2.7 L (8) Hypertension Problem: Chronic Qualifiers: Hypertension type: essential hypertension Qualified Code(s): I10 - Essential (primary) hypertension Narrative: Consider starting low dose lisinopril at discharge.
[2017-02-14 06:39] LABS: Albumin * 2.5 gm/dl (3.4-5.0); Anion Gap 13.1 mmol/L (6.8-13.8); BUN/Creatinine Ratio 15.3 (9.0-21.6); Bilirubin, Total 0.5 mg/dL (0.0-1.1); Ca. Corrected For Albumin 9.2 mg/dL (8.4-10.2); Calcium * 8.3 mg/dL (7.9-10.9); Carbon Dioxide 27.4 mmol/L (24-32.6); Potassium 3.5 mmol/L (3.4-4.6); Total Protein 5.8 gm/dL (6.2-8.2)
[2017-02-14] MEDS: FOLIC ACID 1 MG TABLET PO SCH (09:39)
[2017-02-14] MEDS: THIAMINE HCL 100 MG TABLET PO SCH (09:39)
[2017-02-14] MEDS: buPROPion HCL 150 MG TABLET.SA PO SCH (09:39)
[2017-02-14] MEDS: OXYBUTYNIN CHLORIDE 5 MG TABLET PO SCH (09:39)
[2017-02-14] MEDS: PARoxetine HCL 20 MG TABLET PO SCH (09:39)
[2017-02-14] MEDS: LEVOFLOXACIN 750 MG TABLET PO SCH (10:52)
[2017-02-14] MEDS: NORMAL SALINE 1,000 ML IV PRN (13:47)
[2017-02-14] MEDS: TERAZOSIN HCL 1 MG CAPSULE PO SCH (21:14)
[2017-02-15] MEDS: LORazepam 1 MG TABLET PO SCH ×6 (04:16→23:43)
--- NOTE | 2017-02-15 06:06 | PN ---
Subjective - Date and Time Seen Date: 02/15/17 Time: 06:01 Subjective Narrative: Pt seen this am. Has no complaints. Nursing reports weakness and requires maximum assistance with two staff in transfers. Has not been ambulating much, with somlonce from Ativan for Etoh withdrawal being a contributing factor. LT nephrostomy draining. Needs to work on strengthening prior to discharge. No other acute events overnight. Objective - Vitals Vitals: Last Vital Signs Temp 36.4 C L 02/15/17 03:08 Pulse 76 02/15/17 03:08 Resp 14 02/15/17 03:08 BP 158/89 02/15/17 03:08 Pulse Ox 96 02/15/17 03:08 - Abnormal Lab Findings Abnormal Lab Findings: Abnormal Lab Results 02/14/17 Range/Units 06:20 AST 153 H (0-48) U/L ALT 204 H (19-67) U/L Total Protein 5.8 L (6.2-8.2) gm/dL Albumin 2.5 L (3.4-5.0) gm/dl - Exam Constitutional: Present: Alert, Oriented x3, No distress, Looks Older than stated age ENT Exam: Present: normal ENT inspection Neck: Present: full range of motion, supple, normal inspection Breasts: Present: Exam deferred Respiratory: Present: normal breath sounds, No rales, No wheezing Cardiovascular/Chest: Present: normal peripheral pulses, regular rate, rhythm, no chest tenderness Abdomen: Present: Normal bowel sounds, soft, nontender /Rectal: Present: Other - LT nephrostomy tube Extremity: Present: normal range of motion Skin Exam: Present: warm/dry, no cyanosis Lymphatic: Present: no adenopathy Neurologic: Present: no motor/sensory deficits, alert, normal mood/affect Appearance: Present: impaired insight Eye contact: Present: cooperative, decreased rate of speech Thoughts: Present: no apparent hallucination Assessment/Plan - Problems/Diagnosis (1) Sepsis Problem: Resolved Qualifiers: Sepsis type: sepsis due to unspecified organism Qualified Code(s): A41.9 - Sepsis, unspecified organism (2) UTI (urinary tract infection) Problem: Acute Qualifiers: Urinary tract infection type: acute pyelonephritis Qualified Code(s): N10 - Acute pyelonephritis (3) Hydronephrosis of left kidney Problem: Acute (4) Acute encephalopathy Problem: Acute (5) Bladder cancer Problem: Acute Qualifiers: Bladder location: unspecified site Qualified Code(s): C67.9 - Malignant neoplasm of bladder, unspecified (6) Alcohol intoxication Problem: Acute (7) Abnormal liver enzymes Problem: Acute (8) Hypertension Problem: Chronic Qualifiers: Hypertension type: essential hypertension Qualified Code(s): I10 - Essential (primary) hypertension
[2017-02-15] MEDS: THIAMINE HCL 100 MG TABLET PO SCH (08:50)
[2017-02-15] MEDS: FOLIC ACID 1 MG TABLET PO SCH (08:50)
[2017-02-15] MEDS: PARoxetine HCL 20 MG TABLET PO SCH (08:51)
[2017-02-15] MEDS: buPROPion HCL 150 MG TABLET.SA PO SCH (08:51)
[2017-02-15] MEDS: OXYBUTYNIN CHLORIDE 5 MG TABLET PO SCH (08:51)
[2017-02-15] MEDS: LEVOFLOXACIN 750 MG TABLET PO SCH (11:40)
[2017-02-15] MEDS: TERAZOSIN HCL 1 MG CAPSULE PO SCH (20:02)
[2017-02-16] MEDS: LORazepam 1 MG TABLET PO SCH ×2 (03:20→07:30)
[2017-02-16 03:55] VITALS: BP 149/91
[2017-02-16 05:44] LABS: Hemoglobin 12.1 gm/dL (13.5-18.0); Mean Cell Volume 94.4 fl (78-100); Mean Corpuscular Hemoglobin 33.6 pg (27-31); Mean Corpuscular Hgb Conc 35.6 g/dl (32-36); Neutrophil # 2.9 K/mm3 (1.3-6.0); Platelet Count 183 K/mm3 (150-450); Red Cell Distribution Width 12.1 % (11.5-14.0); White Blood Count 4.5 K/mm3 (4.0-10.5)
[2017-02-16 06:03] LABS: Albumin * 2.6 gm/dl (3.4-5.0); Anion Gap 10.4 mmol/L (6.8-13.8); BUN/Creatinine Ratio 15.2 (9.0-21.6); Bilirubin, Total 0.7 mg/dL (0.0-1.1); Ca. Corrected For Albumin 9.7 mg/dL (8.4-10.2); Calcium * 8.9 mg/dL (7.9-10.9); Carbon Dioxide 26.5 mmol/L (24-32.6); Potassium 2.9 mmol/L (3.4-4.6); Total Protein 6.3 gm/dL (6.2-8.2)
[2017-02-16] MEDS ORDERED: POTASSIUM CHLORIDE 20 MEQ TABLET.SA PO SCH (08:00)
--- NOTE | 2017-03-04 13:04 | DS ---
(1) Alcohol withdrawal Problem: Acute (2) Weakness Problem: Acute (3) Bladder cancer Problem: Acute Qualifiers: Bladder location: unspecified site Qualified Code(s): C67.9 - Malignant neoplasm of bladder, unspecified (4) Hydronephrosis of left kidney Problem: Acute (5) UTI (urinary tract infection) Problem: Acute Qualifiers: Urinary tract infection type: acute pyelonephritis Qualified Code(s): N10 - Acute pyelonephritis Description of Stay: Marvin is a 66 yo male with bladder cancer and nephrostomy tube that was obstructed. Dr. Waterman was consulted and flushed the tubing, able to get it flushing again. Urine showed evidence for UTI and he was started on antibiotics. Culture grew bacteria and antibiotics were adjusted accordingly. He had severe alcohol withdrawal symptoms that required scheduled ativan. This improved with time. He was severely weak and unable to work with therapy. On he and his family decided that he wanted to go home. He was unable to walk and not safe for discharge but he signed out against medical advice and was carried out to a car by his family. Procedures Performed: none Discharge Disposition: AMA Disposition: Home self-care Condition: Poor Discharge Activity: Activity as tolerated Discharge Diet: General/regular food Additional Patient Instructions (free text): TCM appointment unless penitentiary discharge. Thank you! Ca @ EXT: 9897. Complete Home Medications List: Complete Home Medication List: PARoxetine HCL [Paxil] 20 mg PO DAILY 11/14/14 Terazosin HCl 2 mg PO DAILY 11/14/14 Bupropion HCl [Wellbutrin Sr] 150 mg PO DAILY 12/10/16 Oxybutynin Chloride [Ditropan] 5 mg PO 02/11/17
== END 2017-02-16 08:00 | disposition left against medical advice (07) | DRG 690 ==
LOC: ER 15:05 → MS 22:16 → OBSVTOIN 23:49
PROVIDERS: ADMIT Nurse Practitioner; ATTEND Family Medicine
PROC: HZ2ZZZZ Detoxification Services for Substance Abuse Treatment (ICD-10-PCS; principal; 2017-02-11)
DX: N10 Acute pyelonephritis (principal); C79.01 Secondary malignant neoplasm of right kidney and renal pelvis; F10.231 Alcohol dependence with withdrawal delirium; G31.2 Degeneration of nervous system due to alcohol; R53.1 Weakness; C67.9 Malignant neoplasm of bladder, unspecified; I10 Essential (primary) hypertension; F10.229 Alcohol dependence with intoxication, unspecified; F17.210 Nicotine dependence, cigarettes, uncomplicated
CPT/HCPCS: 36415; 71010; 74020; 74177; 80048; 80053; 81001; 82140; 83605; 85007; 85025; 85652; 86140; 87040; 87077; 87086; 87186; 96365; 96375; 97163; 97530; 99285; G0481; J2405